=== PATIENT | male | born 1935 | race Caucasian/White ===

== ENCOUNTER → 2017-10-10 | Day surgery (SDC) | payer MEDICARE, OTHER ==
[~2017-10-10] MED LIST: DEXAMETHASONE SOD PHOS 4 MG/ML VIAL ONE; EPINEPHrine HCL (1:1000) 1 MG/ML VIAL ONE; LACTATED RINGER'S 1000 ML INJ 1,000 ML ONE; MIDAZOLAM HCL 2 MG/2 ML VIAL ONE; MOXIFLOXACIN 0.5% OPHT SOLN 3 ML BTL ONE; ONDANSETRON HCL 4 MG/2 ML VIAL IV PUSH ONE; PHENYLEPHRINE HCL 10% OPTH SOLN 5 ML BTL ONE; PROPOFOL 200 MG/20 ML AMP IV ONE; SODIUM CHLORIDE 0.9% INJ 10 ML ONE; TETRACAINE 0.5% OPTH SOLN 15 ML BTL ONE; TOBRAMYCIN/DEXAMETHASONE OPTH OINT 3.5 GM TUBE ONE; ceFAZolin INJ 1,000 MG VIAL ONE; prednisoLONE ACETATE 1% OPHT SUSP 5 ML BTL ONE
--- NOTE | 2017-10-13 12:13 | TN ---
cc: BRAYDEN SINGH MD DATE OF SURGERY 10/10/2017 PREOPERATIVE DIAGNOSIS Large hemorrhagic retinal detachment, right eye. POSTOPERATIVE DIAGNOSIS Large hemorrhagic retinal detachment, right eye. PROCEDURE Pars plana vitrectomy, instillation of subretinal TPA, endolaser, air-fluid exchange, insertion of 10% SF6 gas, right eye. COMPLICATIONS None. ESTIMATED BLOOD LOSS Less than 1 cc. ANESTHESIA General, Dr. Li. INDICATION FOR PROCEDURE This delightful patient presented with severe vision loss in his right eye. The patient was found to have a large hemorrhagic retinal detachment extending through and beyond his macula. The patient elected for surgical correction in hopes for best chance of improvement. The patient understands the severity of his condition and that he may not experience improved vision and may experience worsening vision. PROCEDURE NOTE After informed consent was obtained the patient was brought to the operating room and general anesthesia was established. The right eye was prepped and draped in sterile fashion with Betadine in the conjunctival fornix. A three-port pars plana vitrectomy was established with a self-retaining infusion cannula. Core vitreous was evacuated. Vitreous traction was relieved. Subretinal TPA was injected, 0.2 cc of 12.5 mcg per 0.1 cc using a 33-gauge subretinal cannula. Endolaser was applied surrounding the injection site and the areas of peripheral retinal weakening. Air-fluid exchange was carried out and 10% SF6 gas was instilled. The patient was supine for 30 minutes and then will maintain a head-up position. The trocar was removed and sclerotomies closed with 7-0 Vicryl suture. The conjunctiva was re-approximated. Subconjunctival injections of Ancef and dexamethasone were given. The eye was patched doubly with Tobramycin ointment. The patient was brought to the recovery room in stable condition. He is to continue follow-up with [facility] for his postoperative care. Brayden Singh MD KW/BT /4:31 PM /11:46 AM
== END | disposition home or self-care (01) ==
LOC: ESDC 10:10
PROVIDERS: ATTEND Ophthalmology
DX: H35.7 Separation of retinal layers (principal)
CPT/HCPCS: 00145; 67108; J0171; J0690; J1100; J2250; J2405; J3010; J7120

== ENCOUNTER → 2017-12-19 | Day surgery (SDC) | payer MEDICARE, OTHER ==
[~2017-12-19] MED LIST changes: +ACETAMINOPHEN 1000 MG/100 ML 100 ML IV ONE; +MORPHINE SULFATE 4 MG/ML INJ ONE; -TETRACAINE 0.5% OPTH SOLN 15 ML BTL ONE; +TETRACAINE 0.5% OPTH SOLN 4 ML BTL ONE
--- NOTE | 2017-12-25 09:44 | MP ---
cc: Brayden Aguilar MD DATE OF OPERATION: 12/19/2017 PREOPERATIVE DIAGNOSIS: Hemorrhagic retinal detachment, massive subretinal hemorrhage, vitreous hemorrhage, anterior chamber hyphema, right eye. POSTOPERATIVE DIAGNOSIS: Hemorrhagic retinal detachment, massive subretinal hemorrhage, vitreous hemorrhage, anterior chamber hyphema, right eye. PROCEDURE PERFORMED: Pars vitrectomy, removal of hyphema and vitreous hemorrhage, hemorrhagic retinal detachment repair, with intravitreal TPA and 10% SF6 gas, endolaser, right eye. COMPLICATIONS: None. ESTIMATED BLOOD LOSS: Less than 1 mL. ANESTHESIA: Dr. Jose, general. INDICATIONS: This delightful patient presented with severe vision loss on his right eye. The patient previously had a retinal detachment, which was successfully repaired. The patient elected for surgical correction, understanding the risks, benefits, alternatives and guarded prognosis given the severity of his condition. PROCEDURE NOTE: After informed consent was obtained, the patient was brought to the operating room, general anesthesia was established. The right eye was prepped and draped in sterile fashion. Betadine in the conjunctival fornix. A 3-port pars plana vitrectomy was established with self-retaining infusion cannula. A 1.0 clear corneal incision was made and the anterior chamber irrigated with BSS to remove the hyphema. Vitrectomy was then used to remove vitreous hemorrhage. A severe subretinal hemorrhage/hemorrhagic retinal detachment was seen through the entire macula into the mid periphery and to the periphery. A retinotomy was made superior to the macula and subretinal fluid was removed. Multiple large clots were remaining. 0.2 mL of TPA, 12.5 mg per 0.1 mL was inserted in the subretinal space from the retinotomy. A fluid exchange was carried out and 10% SF6 gas was instilled. The patient will remain supine for 30 minutes, then a head-up position. The retina had significantly reattached at the end of the surgery, but limited by subretinal clotting. Trocar was removed and sclerotomies closed with 7-0 Vicryl suture. Conjunctiva was reapproximated with 6-0 plain gut. Subconjunctival injection of Ancef and dexamethasone were given. The eye was patched with tobramycin ointment. The patient was brought to the recovery room in stable condition. He will continue to followup with [facility] for his postoperative care. MD KEITH Zheng , 09:40 PM , 11:54 PM
== END | disposition home or self-care (01) ==
LOC: ESDC 08:57
PROVIDERS: ATTEND Ophthalmology
DX: H33.8 Other retinal detachments (principal); H35.61 Retinal hemorrhage, right eye; H43.11 Vitreous hemorrhage, right eye; H21.01 Hyphema, right eye
CPT/HCPCS: 00145; 67108; J0131; J0171; J0690; J1100; J2250; J2270; J2405; J3010; J7120